=== PATIENT | male | born 1975 | race African-American/Black ===

== ENCOUNTER → 2024-05-05 | Outpatient (CLI) | payer OTHER, SELFPAY ==
--- NOTE | 2024-05-05 15:44 | HMCIMG ---
CT CHEST W/O CONTRAST REASON: TB screening (+). Other nonspecific abnormal finding of lung field COMPARISON: None. TECHNIQUE: Multiple sequential axial images of the chest were obtained from the thoracic inlet through the upper pole of the kidneys without intravenous contrast administration. FINDINGS: Lungs are clear. There are no focal masses or infiltrates. There are no pleural effusions. There is normal-appearing pulmonary interstitial pattern. Heart is upper limits of normal in size. There is no pulmonary vascular congestion. There is no hilar or mediastinal lymphadenopathy. Chest wall structures appear normal. Visualized upper abdominal structures are unremarkable. Particular attention shows no CT evidence of current or previous pulmonary tuberculosis. IMPRESSION: 1. Negative noncontrast CT chest. 2. No evidence of current or previous pulmonary tuberculosis. CT was performed with one or more following dose reduction techniques: automated exposure control, adjustment of the mA and kv according to patient's size, or use of a iterative reconstruction technique.
== END | disposition home or self-care (01) ==
LOC: EEVIPCON 13:30 → RAH 13:32
PROVIDERS: ATTEND Physical Medicine & Rehabilitation
DX: Z11.1 Encounter for screening for respiratory tuberculosis (principal); R91.8 Other nonspecific abnormal finding of lung field
CPT/HCPCS: 71250